=== PATIENT | male | born 1990 | race Caucasian/White ===

== ENCOUNTER 2023-11-27 17:26 | Emergency (ER) | payer OTHER ==
--- NOTE | 2023-11-27 17:55 | ED Physician Documentation ---
PD HPI ABD PAIN - Stated complaint Stated Complaint: - Chief complaint Chief Complaint: Abd Pain - History obtained from History obtained from: Patient - Additional information Additional information: Otherwise healthy 33-year-old gentleman who is in a monogamous relationship with his developed testicular soreness about 4 days ago. He says he crosser uncross his legs or got up from a chair wrong and sort of squashed his balls. Since then he has had left testicular soreness with more significant pain radiating to the back today and feeling like his testicle is sideways which is making him quite anxious. PD PAST MEDICAL HISTORY - Past Medical History Past Medical History: No - Past Surgical History Past Surgical History: No - Present Medications Home Medications: Ambulatory Orders Medication Instructions Recorded Confirmed No Known Home Medications 11/27/23 11/27/23 - Allergies Allergies/Adverse Reactions: Allergies Allergy/AdvReac Type Severity Reaction Status Date / Time No Known Drug Allergies Allergy Verified 11/27/23 17:44 - Social History Does the pt smoke?: No Smoking Status: Never smoker Does the pt drink ETOH?: No Does the pt have substance abuse?: No PD ED PE NORMAL - Vitals Vital signs reviewed: Yes - General General: Alert and oriented X 3, No acute distress - Abdomen Abdomen: Normal bowel sounds, Soft, Non tender - Male Male : Other (Testicles have normal lie. There is no hernia or mass. No specific tenderness. The left testicle is slightly high riding. He does not have a cremaster reflex on either side.) - Neuro Neuro: Alert and oriented X 3 Results - Vitals Vitals: Vital Signs - 24 hr 11/27/23 11/27/23 17:39 18:46 Temperature 36 C L Heart Rate 77 78 Respiratory 15 16 Rate Blood Pressure 151/88 H 136/84 H O2 Saturation 99 98 Oxygen O2 Source Room air - Labs Labs: Laboratory Tests 11/27/23 18:00 Urine Color YELLOW Urine Clarity CLEAR Urine pH 6.0 Ur Specific [place] 1.010 Urine Protein NEGATIVE Urine Glucose (UA) NEGATIVE Urine Ketones NEGATIVE Urine Occult Blood NEGATIVE Urine Nitrite NEGATIVE Urine Bilirubin NEGATIVE Urine Urobilinogen 0.2 (NORMAL) Ur Leukocyte Esterase NEGATIVE Ur Microscopic Review NOT INDICATED Urine Culture Comments NOT INDICATED PD Medical Decision Making - ED course ED course: He has soreness more than anything else of the left testicle. He has a fat- containing inguinal hernia and a small left hydrocele on ultrasound. He is certainly not an extremis and there is normal lie on exam. He was reassured that the clinical findings were not likely dangerous but urologic follow-up was advised. Departure - Departure Disposition: 01 Home, Self Care Clinical Impression: Hydrocele Qualifiers: Hydrocele type: unspecified Qualified Code(s): N43.3 - Hydrocele, unspecified Condition: Good Record reviewed to determine appropriate education?: Yes Instructions: ED Hydrocele Type Not Specified, ED Testicular Pain [facility] Follow-Up: Kobe Amaral MD [Provider Admit Priv/Credential] - Comments: Your testicles themselves are normal. You do have a small hydrocele on the left which is a fluid-filled area outside of the testicle within the scrotum. This sometimes can become symptomatic enough to need surgery but years is fairly small. He also have a small hernia on that side, but the location of your pain suggest that it is more likely the hydrocele that is the symptomatic part. There is no torsion or twisting of the testicle and no evidence of infection such as epididymitis. You can follow-up with our urologist, the numbers on this form. Return for new or worsening symptoms. Forms: PCP List Discharge Date/Time: 11/27/23 18:47
[2023-11-27 18:09] LABS: BILIRUBIN,URINE NEGATIVE (NEGATIVE); GLUCOSE, URINE (UA) NEGATIVE (NEGATIVE); KETONES,URINE (UA) NEGATIVE (NEGATIVE); LEUKOCYTE ESTERASE, URINE NEGATIVE (NEGATIVE); NITRITE,URINE NEGATIVE (NEGATIVE); OCCULT BLOOD,URINE NEGATIVE (NEGATIVE); PROTEIN,URINE NEGATIVE (NEGATIVE); UROBILINOGEN,URINE 0.2 (NORMAL) E.U./dL (NORMAL)
[2023-11-27 18:11] LABS: CLARITY,URINE CLEAR (CLEAR)
[2023-11-27 18:50] VITALS: BP 136/84; O2SAT 98
--- NOTE | 2023-11-27 18:50 | Ultrasound Report ---
PROCEDURE: Testicle w/Doppler INDICATIONS: Left testicular pain TECHNIQUE: Real-time scanning was performed of the scrotum and testicles, with image documentation. Color and p ulse Doppler interrogation was performed of both testicles. COMPARISON: None. FINDINGS: Right: Testicle is normal in size at 5 x 2.3 x 3.1 cm, and homogenous in echotexture. Epididymis is normal in overall size and morphology. No hydrocele. No varicoceles. Overlying scrotal skin is nor mal in thickness. Left: Testicle is normal in size at 4.9 x 2.3 x 3 cm, and homogeneous in echotexture. Epididymis is normal in overall size and morphology. Small hydrocele. No varicoceles. Overlying scrotal skin is normal in thickness. Doppler: Color and pulse Doppler demonstrate normal and symmetric arterial flow in both testicles. Small left inguinal hernia containing fat, which is reducible. IMPRESSION: Small left hydrocele. Small left inguinal hernia containing fat. Reviewed by: Willy Auguste MD on 11/27/2023 6:49 PM PST Approved by: Willy Auguste MD on 11/27/2023 6:49 PM PST Station ID: [id number]
== END 2023-11-27 18:47 | disposition home or self-care (01) ==
LOC: ED 17:26
DX: N43.3 Hydrocele, unspecified (principal)
CPT/HCPCS: 81001; 81003; 87086; 93975; 99282; 99284